=== PATIENT | male | born 1945 | race Caucasian/White ===

== ENCOUNTER → 2017-12-03 | Outpatient (CLI) | payer MEDICARE, OTHER | END | disposition home or self-care (01) | LOC: KCIC 15:51 | DX: J84.10 Pulmonary fibrosis, unspecified (principal); I51.7 Cardiomegaly; Z86.79 Personal history of other diseases of the circulatory system | CPT/HCPCS: 71046 ==

== ENCOUNTER → 2018-07-18 | Outpatient (CLI) | payer MEDICARE, OTHER ==
[2014-03-29 11:00] VITALS: BP 134/78
[~2018-07-18] MED LIST: AMLO5TAB4 PO; ATOR10TA PO; Aspirin PO; CALC667C6 PO; CARV3.12 PO; FURO-68 PO; INSU100I11 SQ; INSU100I13 SQ; LISI1TAB7 PO
--- NOTE | 2018-07-18 16:19 | KCIC ---
CHEST PA LATERAL CLINICAL INDICATION: Cough COMPARISON: 12/03/2017 FINDINGS: Heart is normal in size. Mild prominence of bilateral bronchial markings seen. No focal consolidation. No pneumothorax or pleural effusion. Visualized bony thorax is within normal limits. IMPRESSION: Findings of mild bronchitis in right clinical setting. Electronically signed by: Ash Ross DO (07/18/2018 4:16 PM) [facility]
== END | disposition home or self-care (01) ==
LOC: KCIC 15:51
PROVIDERS: ATTEND Nurse Practitioner Family
DX: J40 Bronchitis, not specified as acute or chronic (principal)
CPT/HCPCS: 71046

== ENCOUNTER → 2018-08-01 | Outpatient (CLI) | payer MEDICARE, OTHER ==
[2014-03-29 11:00] VITALS: BP 134/78
--- NOTE | 2018-08-01 17:17 | KCIC ---
EXAM: Chest, 2 views. HISTORY: Bronchitis. COMPARISON: 07/18/2018. FINDINGS: 2 views of the chest are obtained. There is stable mild bilateral infrahilar interstitial opacity. There is no consolidated, pleural effusion or pneumothorax. There is a stable prominent cardiac silhouette. IMPRESSION: Stable mild bilateral infrahilar interstitial prominence. There is no consolidated infiltrate. Electronically signed by: Frances Beal MD (08/01/2018 5:14 PM) [place] [id number]
== END | disposition home or self-care (01) ==
LOC: KCIC 11:53
PROVIDERS: ATTEND Nurse Practitioner Family
DX: J40 Bronchitis, not specified as acute or chronic (principal)
CPT/HCPCS: 71046

== ENCOUNTER → 2020-06-17 | Outpatient (CLI) | payer MEDICARE, OTHER ==
[2014-03-29 11:00] VITALS: BP 134/78
[~2020-06-17] MED LIST changes: +LISI1TAB20 PO; -LISI1TAB7 PO; +SINCALIDE 1.72 MCG in IV NORMAL SALINE 50ML 30 ML IV ONE
--- NOTE | 2020-06-17 08:10 | RAD ---
EXAM: Abdomen sonogram. HISTORY: Right upper quadrant pain. TECHNIQUE: Sonographic imaging of the abdomen was performed. COMPARISON: 03/24/2014. FINDINGS: The liver is normal in size. No focal hepatic lesion is seen. There are nonmobile and nonsh adowing echogenic foci along the gallbladder wall. The common bile duct is normal in caliber. The rig ht kidney measures 8.7 cm [id number]. There is a 1.5 cm cyst with internal echoes within the mid zo ne of the right kidney. The pancreas, aorta and inferior vena cava are predominantly obscured due to bowel gas. IMPRESSION: 1. Suspected cholelithiasis or tiny gallbladder polyps. There is no sonographic evidence of cholecyst itis. 2. 1.5 cm complicated right renal cyst containing internal echoes likely due to debris. There is no c orrelate for this finding on the prior exam. Sonographic follow-up in 6 months can be performed to co nfirm stability. 3. Decreased right renal size likely due to mild atrophy. Electronically signed by: Frances Beal MD (06/17/2020 8:08 AM) [id number]
--- NOTE | 2020-06-17 11:17 | RAD ---
EXAM: HEPATOBILIARY SCINTIGRAPHY WITH GALLBLADDER EJECTION FRACTION CALCULATION. HISTORY: Right upper quadrant pain/nausea. TECHNIQUE: 5.5 mCi technetium-99m Choletec were administered intravenously and scintigraphic images o f the abdomen obtained. After filling of the gallbladder, 1.7 mcg of sincalide were infused and the g allbladder ejection fraction calculated. FINDINGS: There is prompt hepatic clearance of tracer from the blood pool. There is homogeneous distr ibution throughout the liver. There is normal filling of the gallbladder and clearance into the bilia ry tree and small bowel. The gallbladder ejection fraction is 87% (normal >35%). IMPRESSION: 1. Normal gallbladder ejection fraction. Electronically signed by: Jennifer Mattson MD (06/17/2020 11:15 AM) [id number]
== END ==
LOC: US 06:58
PROVIDERS: ATTEND Internal Medicine Gastroenterology
DX: N28.1 Cyst of kidney, acquired (principal); R10.11 Right upper quadrant pain; R11.0 Nausea
CPT/HCPCS: 76705; 78227; A9537; J2805

== ENCOUNTER 2020-09-23 07:58 | Day surgery (SDC) | payer MEDICARE, OTHER ==
[~2020-09-23] VITALS: Ht 170.2 cm; Wt 88.0 kg
[~2020-09-23 07:58] MED LIST changes: +ACETAMINOPHEN 500 MG TABLET PO PRN; +ATOR20TA58 PO; +BIMA2.5D EACHEYE; +CALC-71 PO; +CARV25TA2 PO; +CETI10TA16 PO; +CINA30TA24 PO; +HYDROmorphone 2 MG/ML VIAL IVP PRN; +IV RINGERS,LACTATED 1000ML 1,000 ML IV SCH; +MORPHINE SULFATE 2 MG/ML VIAL. IVP PRN; +PROCHLORPERAZINE 10 MG/2 ML VIAL. IVP PRN; +SEVE800T8 PO; -SINCALIDE 1.72 MCG in IV NORMAL SALINE 50ML 30 ML IV ONE; +SUCR500T PO; +TAMS0.4C97 PO; +fentaNYL PF VIAL 100 MCG/2 ML VIAL IVP PRN
[2020-09-23] MEDS ORDERED: levoFLOXacin 500mg PREMIX BAG. IV ONE (08:00)
[2020-09-23] MEDS ORDERED: PROPOFOL 10 MG/ML (20ML) VIAL. IV ONE (08:27)
[2020-09-23] MEDS ORDERED: LIDOCAINE 2% PF 5 ML VIAL. ONE (08:27)
[2020-09-23] MEDS ORDERED: fentaNYL PF VIAL 100 MCG/2 ML VIAL ONE ×2 (08:28→10:46)
[2020-09-23] MEDS ORDERED: ROCURONIUM 50 MG/5 ML VIAL. ONE (08:28)
[2020-09-23 08:51] LABS: CALCIUM 8.1 mg/dL (8.5-10.1); CREATININE 7.1 mg/dL (0.7-1.3); GFR 7.6; POTASSIUM 4.1 mmol/L (3.5-5.1)
--- NOTE | 2020-09-23 08:52 | PDOC1 ---
History and Physical Date of Admission Date of Admission DATE: 09/23/20 TIME: 08:49 Identification/Chief Complaint Chief Complaint Right upper quadrant abdominal pain Source Source: Chart review, Patient History of Present Illness History of Present Illness 74-year-old male with complaints of right upper quadrant abdominal pain for several months weight loss. He had Covid last year has recovered ultrasound of the gallbladder shows small stones and possible polyp HIDA scan was normal with any normal ejection fraction Past Medical History Cardiovascular: HTN Pulmonary: Other CENTRAL NERVOUS SYSTEM: Other GI: Constipation, Other Heme/Onc: Anemia NOS Psych: No pertinent hx Musculoskeletal: Osteoarthritis Rheumatologic: No pertinent hx Infectious disease: No pertinent hx Renal/: No pertinent hx Endocrine: Diabetes Past Surgical History Past Surgical History: Tonsillectomy, Other Family History Family History: Diabetes, Hypertension Social History ALCOHOL: none Drugs: None Current Medications Current Medications Current Medications Fentanyl Citrate (Fentanyl 2ml Vial) 25 mcg PRN Q5MIN PRN IVP MILD PAIN 1-3; Start 09/23/20 at 06:00; Stop 09/24/20 at 05:59 Fentanyl Citrate (Fentanyl 2ml Vial) 50 mcg PRN Q5MIN PRN IVP MODERATE PAIN 4- 6; Start 09/23/20 at 06:00; Stop 09/24/20 at 05:59 Morphine Sulfate (Morphine Sulfate) 1 mg PRN Q10MIN PRN IVP SEVERE PAIN 7-10; Start 09/23/20 at 06:00; Stop 09/24/20 at 05:59 Ringer's Solution 1,000 ml @ 30 mls/hr Q24H IV Last administered on 09/23/20at 08:37; Start 09/23/20 at 06:00; Stop 09/23/20 at 17:59 Hydromorphone HCl (Dilaudid) 0.5 mg PRN Q10MIN PRN IVP SEVERE PAIN 7-10, 2nd CHOICE; Start 09/23/20 at 06:00; Stop 09/24/20 at 05:59 Prochlorperazine Edisylate (Compazine) 5 mg PACU PRN PRN IVP NAUSEA, MRX1; Start 09/23/20 at 06:00; Stop 09/24/20 at 05:59 Acetaminophen (Tylenol) 1,000 mg 1X PREOP PRN PO PRIOR TO PROCEDURE Last administered on 09/23/20at 08:38; Start 09/23/20 at 06:00 Levofloxacin/ Dextrose 100 ml @ 100 mls/hr 1X PREOP PRN IV PRIOR TO PROCEDURE; Start 09/23/20 at 06:00; Stop 09/23/20 at 18:00 Active Scripts Active [Aspirin] 81 MG Tablet. 81 Mg PO DAILYWBKFT Reported Renagel (Sevelamer Hcl) 800 Mg Tablet 800 Mg PO TID Sensipar (Cinacalcet Hcl) 30 Mg Tablet 1 Tab PO DAILY 30 Days Flomax (Tamsulosin Hcl) 0.4 Mg Cap.er.24h 1 Cap PO DAILY Lumigan (Bimatoprost) 2.5 Ml Drops 1 Drop EACHEYE QHS Cetirizine Hcl 10 Mg Tablet 1 Tab PO DAILY Calcium 600 + Vit D Caplet (Calcium Carbonate/Vitamin D3) 1 Each Tablet 1 Each PO DAILY08 Carvedilol 25 Mg Tablet 12.5 Mg PO BIDWMEALS Atorvastatin Calcium 20 Mg Tablet 20 Mg PO HS Lantus Solostar (Insulin Glargine,Hum.rec.anlog) 100 Unit/1 Ml Insuln.pen 15-20 Unit SQ BID Humalog (Insulin Lispro) 100 Unit/1 Ml Insuln.pen 4-8 Unit SQ TID Allergies Allergies: Coded Allergies: Penicillins (Verified Allergy, Intermediate, HIVES, 09/23/20) ROS Gastrointestinal: Yes Abdominal Pain Physical Exam General: Alert, Oriented X3, Cooperative, No acute distress HEENT: Atraumatic, EOMI Lungs: Clear to auscultation, Normal air movement Heart: RRR, no murmurs Abdomen: Normal bowel sounds, Soft, Other (Mildly tender right upper quadrant) Rectal Exam: not examined Extremities: No edema Skin: No significant lesion Neuro: Normal speech Psych/Mental Status: Mental status NL Vitals Vitals Vital Signs Date Time Temp Pulse Resp B/P (MAP) Pulse Ox O2 Delivery O2 Flow Rate FiO2 09/23/20 08:27 97.6 75 20 181/79 94 Room Air 97.6 VTE Prophylaxis Ordered VTE Prophylaxis Devices: Yes VTE Pharmacological Prophylaxi: Contraindicated Assessment/Plan Assessment/Plan Chronic cholecystitis cholelithiasis plan laparoscopic cholecystectomy Justifications for Admission Other Justification CHRISTIANE GARCIA MD September 23, 2020 08:52
[2020-09-23] MEDS ORDERED: SURGICEL HEMOSTAT 4X8 EACH. ONE (08:58)
[2020-09-23] MEDS ORDERED: BUPIVACAINE-EPI 0.25% 30 ML VIAL KIT. ONE (08:58)
[2020-09-23] MEDS ORDERED: IOHEXOL 300 MG/ML 50 ML VIAL. ONE (08:58)
[2020-09-23] MEDS ORDERED: BUPIVACAINE-EPI 0.25% 30 ML VIAL KIT. INJ ONE (09:42)
[2020-09-23] MEDS ORDERED: DEXAMETHASONE SOD PHOS 20 MG/5 ML VIAL. ONE (09:53)
[2020-09-23] MEDS ORDERED: ONDANSETRON PF 4 MG/2 ML VIAL. ONE (09:53)
[2020-09-23] MEDS ORDERED: NEOSTIGMINE METHYLSULFATE 5 MG/5 ML SYRINGE. ONE (09:54)
[2020-09-23] MEDS ORDERED: GLYCOPYRROLATE 1 MG/5 ML VIAL. ONE (09:54)
--- NOTE | 2020-09-23 10:08 | PDOC4 ---
Operative Note Operative Note Date: September 23, 2020 at 1005 Preoperative diagnosis: Chronic cholecystitis cholelithiasis Postoperative diagnosis: Same Procedure: Laparoscopic cholecystectomy Surgeon: Rangel Specimen: Gallbladder Dictation: Patient is 75-year-old gentleman with complaints of right upper quadrant abdominal pain and ultrasound showing gallstones. Procedure of laparoscopic cholecystectomy was explained to the patient detail risk benefits were also discussed including bleeding infection injury to intra-abdominal contents possible necessitating further open operations alternatives to this pro cedure also discussed with the patient who seemed to understand and gave both verbal and written consent to have the procedure performed. Patient was taken to the operating room placed in the supine position general anesthesia was initiated once patient was sleeping intubated his abdomen was prepped and draped usual sterile fashion using ChloraPrep. An area just below the umbilicus was injected with quarter percent Marcaine with epinephrine incision was made 11 blade scalpel and a varies needle was placed within the abdomen creating pneumoperitoneum once this was complete 11 mm port was placed and a 5 mm camera was placed within the abdomen which was inspected no other abnormalities were noted. A 5 mm port was placed in the epigastrium a 5 mm port was placed in the right midabdomen and a 5 mm port was placed in the right lateral abdomen. The dome of the gallbladder is grasped retracted cephalad the infundibulum the gallbladder is grasped tract laterally there is some adhesions to the gallbladder which were taken down blunt and sharp dissection the triangle was then dissected with blunt dissection exposing the cystic duct and cystic artery both were doubly clipped and transected the gallbladder was taken off the liver with hook electrocautery placed in Endo Catch bag removed and the umbilicus right upper quadrant is irrigated and suctioned dry hemostasis deemed be appropriate the pneumoperitoneum was reduced all ports were removed the fascial defect at the umbilicus was closed with a [id number] 0 Vicryl suture and the skin was reapproximated all port sites for subcuticular Monocryl Mastisol Steri-Strips and island dressings were applied. Patient was awakened and extubated in the operating room taken to recovery in stable condition all sponge instrument needle counts listed as correct estimated blood loss 10 mL. CHRISTIANE GARCIA MD September 23, 2020 10:08
--- NOTE | 2020-09-23 10:10 | DISCH ---
DISCHARGE INSTRUCTIONS Condition on Discharge Condition on Discharge: Stable Activity After Discharge Activity Instructions for Disc: Avoid exertion Other activity instructions: No lifting more than 20 pounds for 2 weeks Weight Bearing Status after Di: No restrictions Diet after Discharge Diet after Discharge: Renal Non-Dialysis, Diabetic No Calorie Level Wound Incision Care Other wound/incision instructi: May shower in 24 hours Contacting the after DC Call your doctor for: If your condition worsens Follow-Up Follow up with: Dr. Garcia in 2 weeks CHRISTIANE GARCIA MD September 23, 2020 10:10
[2020-09-23] MEDS ORDERED: OXYC1TAB15 PO (10:35)
[2020-09-23] MEDS ORDERED: oxyCODONE/APAP 5/325 1 TAB TABLET PO ONE (10:45)
[2020-09-23] MEDS: fentaNYL PF VIAL 100 MCG/2 ML VIAL IVP PRN ×2 (10:48→10:58)
[2020-09-23 11:04] VITALS: BP 129/62
--- NOTE | 2020-09-29 09:11 | PATHOLOGY ---
[facility] Accession Number: [id number] . 01 Material submitted: . gallbladder - GALLBLADDER . 01 Clinical history: . LAP LESLY . 02 Diagnosis: Gallbladder, laparoscopic cholecystectomy: - Cholelithiasis. - Chronic cholecystitis. . ([facility]:mm; 09/28/2020) [facility] 09/28/2020 1857 Local . 02 Comment: There is no evidence of malignancy. . ([facility]:mm; 09/28/2020) . 02 Electronically signed: . Rancho Calvo MD, Pathologist NPI- [id number] . 01 Gross description: . Fixative: Formalin Labeled: Gallbladder Specimen received: Previously opened with multiple full-thickness defects in the wall ranging from 0.1-0.3 cm in greatest dimension Dimensions: 8.8 x 4.3 x 2.6 cm Serosa: Calderón-green and smooth Lymph node: None identified Mucosa: Green and velvety Average wall thickness: 0.1-0.2 cm Calculi: Yes, multiple black jagged calculi measuring in aggregate 0.8 x 0.5 x 0.2 cm and ranging from 0.2-0.3 cm in greatest dimension. Abnormalities: None identified A1- Silvering Applicator body, fundus, and the cystic duct margin. ([facility]; 09/25/2020) [facility] 09/25/2020 1519 Local . 02 Pathologist provided ICD-10: K80.10 . 02 CPT . 503864 Specimen Comment: A courtesy copy of this report has been sent to [phone] Specimen Comment: Report sent to Specimen Comment: A duplicate report has been generated due to demographic updates. Performed at: [address] [place] [address] [address], [place], [place] [id number] MD Dennis Rai MD Phone: [phone] Performed at: [address] [id number] MD Rancho Calvo MD Phone: [phone]
== END 2020-09-23 11:40 | disposition home or self-care (01) ==
LOC: SURG 07:58
PROVIDERS: ATTEND Surgery
DX: K80.10 Calculus of gallbladder with chronic cholecystitis without obstruction (principal); E78.00 Pure hypercholesterolemia, unspecified; I11.0 Hypertensive heart disease with heart failure; I50.9 Heart failure, unspecified; E11.42 Type 2 diabetes mellitus with diabetic polyneuropathy; Z79.4 Long term (current) use of insulin; Z79.899 Other long term (current) drug therapy; Z98.890 Other specified postprocedural states; Z83.3 Family history of diabetes mellitus; Z88.0 Allergy status to penicillin
CPT/HCPCS: 36415; 47562; 80048; 82962; 88304; A4930; A6219; J1100; J1956; J2405; J2704; J2710; J3010; J3490; Q9967; A4657

== ENCOUNTER → 2021-06-20 | Outpatient (CLI) | payer MEDICARE, OTHER ==
[~2021-06-20] MED LIST changes: -ACETAMINOPHEN 500 MG TABLET PO PRN; -HYDROmorphone 2 MG/ML VIAL IVP PRN; -IV RINGERS,LACTATED 1000ML 1,000 ML IV SCH; -LISI1TAB20 PO; +LISI1TAB39 PO; -MORPHINE SULFATE 2 MG/ML VIAL. IVP PRN; +OXYC1TAB15 PO; -PROCHLORPERAZINE 10 MG/2 ML VIAL. IVP PRN; -fentaNYL PF VIAL 100 MCG/2 ML VIAL IVP PRN
== END ==
LOC: SPEC 13:07
PROVIDERS: ATTEND Podiatrist
DX: B35.3 Tinea pedis (principal)
CPT/HCPCS: 36415; 88305; 88312